=== PATIENT | male | born 1975 | race Asian ===

== ENCOUNTER 2016-12-22 16:00 | Emergency (ER) | payer BC, OTHER ==
[~2016-12-22] VITALS: Ht 165.1 cm; Wt 61.2 kg
[~2016-12-22 16:00] MED LIST: METH4TAB2 PO; VENTOLIN HFA18 GM INH
[2016-12-22 16:20] VITALS: BP 134/90
--- NOTE | 2016-12-22 16:57 | RAD ---
Chest, 2 views, 12/22/2016: History: Cough, shortness of breath The heart size and pulmonary vascularity are normal. No pulmonary infiltrates are seen. There is no evidence of pleural fluid. IMPRESSION: No acute cardiopulmonary abnormality is detected.
[2016-12-22] MEDS ORDERED: ALBUTEROL SULFATE 2.5 MG/3 ML NEBU. NEB ONE (17:00)
--- NOTE | 2016-12-22 17:07 | PHYS DOC ---
Past Medical History Past Medical History: Asthma Past Surgical History: Other Additional Past Surgical Histo: colon surgery Additional Information: Nonsmoker Alcohol Use: None Drug Use: None Adult General Chief Complaint Chief Complaint: COUGH HPI HPI Patient is a 41 year old male who presents with subjective fever and productive cough for 3 days. He reports shortness of breath, nasal congestion, and chills. He has a sore throat with cough and headache when he feels feverish. He denies any ear pain. He has been taking Amoxil for 2 days, [id number] He is out of his AdvNexess Diskus. He did receive a flu shot this season. He denies any known sick contacts. He does not have a PCP. The patient does not speak Malay. His son translates. Review of Systems Review of Systems Constitutional: Reports subjective fever and chills. Eyes: Denies change in visual acuity, redness, or eye pain. [] HENT: Denies ear pain. Reports nasal congestion and sore throat. Respiratory: Reports productive cough and shortness of breath. Cardiovascular: Denies chest pain, palpitations or edema. [] GI: Denies abdominal pain, nausea, vomiting, bloody stools or diarrhea. [] : Denies dysuria, hematuria or urinary frequency. [] Musculoskeletal: Denies back pain or joint pain. [] Integument: Denies rash or skin lesions. [] Neurologic: Denies focal weakness or sensory changes. Reports headache with fever, resolved when fever breaks. Endocrine: Denies polyuria or polydipsia. [] Psych: Denies anxiety or depression. [] All systems reviewed and negative unless otherwise stated in the HPI. Current Medications Current Medications Current Medications Medications (Trade) Dose Ordered Sig/Julee Start Time Stop Time Status Last Admin Dose Admin Albuterol Sulfate (Ventolin Neb Soln) 2.5 mg 1X ONCE 12/22/16 17:00 12/22/16 17:01 NM Allergies Allergies Allergies Coded Allergies Type Severity Reaction Last Updated Verified No Known Drug Allergies 03/24/16 No Physical Exam Physical Exam Constitutional: Well developed, well nourished, no acute distress, non-toxic appearance. [] HENT: Normocephalic, atraumatic, bilateral external ears normal, oropharynx moist, no oral exudates, nose normal. Bilateral TMs without erythema or bulging. There is no posterior pharyngeal erythema or tonsillar edema. Bilateral nasal turbinates are swollen and erythematous. Eyes: PERRLA, EOMI, conjunctiva normal, no discharge. [] Neck: Normal range of motion, no tenderness, supple, no stridor. [] Cardiovascular:Heart rate regular rhythm, no murmur [] Lungs & Thorax: No respiratory distress. Diffuse inspiratory and expiratory wheezes in all lung reid without rales or rhonchi. Skin: Warm, dry, no erythema, no rash. [] Neurologic: Alert and oriented X 3, normal motor function, normal sensory function, no focal deficits noted. [] Psychologic: Affect normal, judgement normal, mood normal. [] Current Patient Data Vital Signs Vital Signs Date Time Temp Pulse Resp B/P Pulse Ox O2 Delivery O2 Flow Rate FiO2 12/22/16 17:04 95 Room Air 12/22/16 16:20 98.1 90 18 98.1 Lab Values Laboratory Tests Test 12/22/16 16:25 Influenza Type A Antigen Negative (NEGATIVE) Influenza Type B Antigen Negative (NEGATIVE) EKG EKG [] Radiology/Procedures Radiology/Procedures REASON: cough, soa, wheezing throughout PROCEDURE: CHEST PA & LATERAL Chest, 2 views, 12/22/2016: History: Cough, shortness of breath The heart size and pulmonary vascularity are normal. No pulmonary infiltrates are seen. There is no evidence of pleural fluid. IMPRESSION: No acute cardiopulmonary abnormality is detected. Course & Med Decision Making Course & Med Decision Making Pertinent Labs and Imaging studies reviewed. (See chart for details) Reexamination after nebulizer treatment reveals improved breathing with decreased wheezes. There are expiratory wheezes in the lung bases remaining. Results were discussed with the patient and family. He is discharged home with prescription for albuterol inhaler, Advair Diskus, prednisone. Return precautions were discussed. Patient and family verbalized understanding and agree with plan. Dragon Disclaimer Dragon Disclaimer This electronic medical record was generated, in whole or in part, using a voice recognition dictation system. Departure Departure Impression: Primary Impression: Bronchitis Disposition: 01 HOME, SELF-CARE Condition: IMPROVED Referrals: NO PCP (PCP) Patient Instructions: Acute Bronchitis, [id number] Additional Instructions: Your flu test was negative. Your chest x-ray does not show pneumonia. You appear to have bronchitis, which is usually viral. Antibiotics do not help to treat viral infections. Please complete all the prescribed prednisone, even if you are feeling better. Please take Tylenol or ibuprofen for fever or pain. These are available over-the -counter without prescription. Use according to package instructions. Please follow-up with a primary care provider within one week. Return to the emergency department if you have any new or concerning symptoms. Scripts Fluticasone/Salmeterol (Advair 250-50 Diskus)1 Each Disk.w.dev1 Inh IH BID #1 INHALER Prov:BREANA RAMIRES 12/22/16 Albuterol Sulfate (Proair Hfa Inhaler)8.5 Gm Hfa.aer.ad1 Puff INH Q4HRS PRN SHORTNESS OF BREATH #1 INHALER Prov:BREANA RAMIRES 12/22/16 Prednisone 20 Mg Ppxgvl05 Mg PO DAILY 5 Days Prov:BREANA RAMIRES 12/22/16 BREANA RAMIRES Dec 22, 2016 17:07
[2016-12-22 17:15] LABS: OBC FLU VALID
[2016-12-22] MEDS ORDERED: PRED20TA PO (18:00)
[2016-12-22] MEDS ORDERED: PROAIR HFA8.5 GM INH (18:00)
[2016-12-22] MEDS ORDERED: FLUT1DIS3 IH (18:00)
== END 2016-12-22 18:09 | disposition home or self-care (01) ==
LOC: ER 16:00
DX: J40 Bronchitis, not specified as acute or chronic (principal); J45.909 Unspecified asthma, uncomplicated
CPT/HCPCS: 71020; 87804; 99285-25

== ENCOUNTER 2017-03-10 14:15 | Emergency (ER) | payer OTHER ==
[~2017-03-10] VITALS: Ht 165.1 cm; Wt 61.2 kg
[~2017-03-10 14:15] MED LIST changes: +FLUT1DIS3 IH; +PRED20TA PO; +PROAIR HFA8.5 GM INH
[2017-03-10 14:37] VITALS: BP 123/81
--- NOTE | 2017-03-10 14:57 | PHYS DOC ---
Past Medical History Past Medical History: No Pertinent History, Asthma Past Surgical History: Other Additional Past Surgical Histo: colon surgery Alcohol Use: None Drug Use: None Adult General Chief Complaint Chief Complaint: COUGH HPI HPI Patient is a 41 year old male presents emergency department stating that he's had a cough congestion and fever for the last 3 days. He is also been having some shortness of air and difficulty breathing when laying flat at night. He deny any history of congestive heart failure, they deny any lower extremity swelling. Patient denies any history of cigarette smoking. Patient is non- Tristanian speaking and has emergency medicine at bedside. They are unaware of how high the fever was as they have not taken the temperature. They do state the cough is been productive with yellow color. Review of Systems Review of Systems Constitutional: Denies fever or chills [] Eyes: Denies change in visual acuity, redness, or eye pain [] HENT: Denies nasal congestion or sore throat [] Respiratory: cough and shortness of breath Cardiovascular: No additional information not addressed in HPI [] GI: Denies abdominal pain, nausea, vomiting, bloody stools or diarrhea [] : Denies dysuria or hematuria [] Musculoskeletal: Denies back pain or joint pain [] Integument: Denies rash or skin lesions [] Neurologic: Denies headache, focal weakness or sensory changes [] Endocrine: Denies polyuria or polydipsia [] Current Medications Current Medications Current Medications Medications (Trade) Dose Ordered Sig/Julee Start Time Stop Time Status Last Admin Dose Admin Albuterol/ Ipratropium (Duoneb) 3 ml 1X ONCE 03/10/17 15:00 03/10/17 15:01 DC 03/10/17 15:00 3 ML Prednisone (Prednisone) 40 mg 1X ONCE 03/10/17 15:00 03/10/17 15:01 DC 03/10/17 15:23 40 MG Allergies Allergies Allergies Coded Allergies Type Severity Reaction Last Updated Verified No Known Drug Allergies 03/24/16 No Physical Exam Physical Exam Constitutional: Well developed, well nourished, no acute distress, non-toxic appearance. [] HENT: Normocephalic, atraumatic, bilateral external ears normal, oropharynx moist, no oral exudates, nose normal. [] Eyes: PERRLA, EOMI, conjunctiva normal, no discharge. [] Neck: Normal range of motion, no tenderness, supple, no stridor. [] Cardiovascular:Heart rate regular rhythm, no murmur [] Lungs & Thorax: Bilateral breath sounds with wheezes noted throughout Skin: Warm, dry, no erythema, no rash. [] Back: No tenderness Extremities: No tenderness, no cyanosis, no clubbing, ROM intact, no edema. [] Neurologic: Alert and oriented X 3, normal motor function, normal sensory function, no focal deficits noted. [] Psychologic: Affect normal, judgement normal, mood normal. [] Current Patient Data Vital Signs Vital Signs Date Time Temp Pulse Resp B/P (MAP) Pulse Ox O2 Delivery O2 Flow Rate FiO2 03/10/17 14:55 Room Air 03/10/17 14:37 97.9 65 18 100 97.9 EKG EKG [] Radiology/Procedures Radiology/Procedures [] Course & Med Decision Making Course & Med Decision Making Pertinent Labs and Imaging studies reviewed. (See chart for details) CXR negative per Dr Wayne. Patient was provided with respiratory treatment here in the emergency department. He was provided with prednisone here as well. Breath sounds at the current time appear to be clear. Patient will be discharged home with Zithromax, prednisone, and pro-air. Patient will also be instructed to use Tylenol or ibuprofen for fever chills or generalized body aches and discomfort. Recommended following up with his primary care physician in the next week. Signs symptoms to return back to emergency department as been provided. Patient agrees with discharge instructions treatment regimens and follow-up recommendations. [] Dragon Disclaimer Dragon Disclaimer This electronic medical record was generated, in whole or in part, using a voice recognition dictation system. Departure Departure Impression: Primary Impression: Bronchitis Disposition: 01 HOME, SELF-CARE Condition: STABLE Referrals: NO PCP (PCP) Patient Instructions: Acute Bronchitis, [id number] Additional Instructions: You have been provided with respiratory treatment here in the emergency department. Chest x-ray was negative for any abnormalities. Activity as tolerated. Medications as prescribed. Tylenol or ibuprofen for fever chills or generalized body aches and discomfort. Follow-up with primary care physician in the next 5-7 days. Return back to emergency prior signs symptoms of become worse. Scripts Albuterol Sulfate (PROAIR HFA INHALER) 8.5 Gm Hfa.aer.ad 1 PUFF INH PRN Q6HRS Y for SHORTNESS OF BREATH, #1 INHALER 0 Refills Prov: ASHA OGDEN APRN 03/10/17 Azithromycin (ZITHROMAX) 250 Mg Tablet 250 MG PO DAILY for ANTI-BIOTIC, #6 TAB 0 Refills Take 2 tablets today then 1 tablet daily until gone. Prov: ASHA OGDEN APRN 03/10/17 Prednisone (PREDNISONE) 20 Mg Tablet 40 MG PO DAILY, #14 TAB Prov: ASHA OGDEN APRN 03/10/17 ASHA OGDEN APRN March 10, 2017 14:57
[2017-03-10] MEDS ORDERED: IPRATRPIUM/ALBUTEROL 0.5/2.5MG 3 ML NEBU. NEB ONE (15:00)
[2017-03-10] MEDS ORDERED: predniSONE 20 MG TABLET PO ONE (15:00)
[2017-03-10] MEDS ORDERED: AZIT250T PO (15:42)
[2017-03-10] MEDS ORDERED: PRED20TA PO (15:42)
[2017-03-10] MEDS ORDERED: PROAIR HFA8.5 GM INH (15:42)
--- NOTE | 2017-03-11 08:43 | RAD ---
Indication: Productive cough, fever, short of air at night Technique: Two-view chest radiograph was obtained. No comparison is available. Findings: The lungs are clear. The cardiopulmonary silhouette is within normal limits. There is no pleural effusion. The bony structures are intact. Impression: No acute thoracic findings.
== END 2017-03-10 15:50 | disposition home or self-care (01) ==
LOC: ER 15:21
DX: J20.9 Acute bronchitis, unspecified (principal); J45.909 Unspecified asthma, uncomplicated
CPT/HCPCS: 71020; 94250; 94640; 99284; J7512; J7620

== ENCOUNTER 2019-02-13 20:39 | Emergency (ER) | payer BC, OTHER ==
[~2019-02-13] VITALS: Ht 162.6 cm; Wt 61.2 kg
[~2019-02-13 20:39] MED LIST changes: +ALBU2.5V8 INH; +AZIT250T PO; -PROAIR HFA8.5 GM INH
[2019-02-13 21:08] VITALS: BP 159/97
--- NOTE | 2019-02-13 21:16 | PHYS DOC ---
Past Medical History Past Medical History: No Pertinent History, Asthma (CASTILLO LEWIS) Past Surgical History: Other Additional Past Surgical Histo: colon surgery (CASTILLO LEWIS) Alcohol Use: None Drug Use: None (CASTILLO LEWIS) Adult General Chief Complaint Chief Complaint: COUGH HPI HPI Patient is a 43 year old M who speaks [place] who is here with reports of cough and feeling SOB. His son is translating. They were offered the spring intern phone but declined. Pt states symptoms started about a week ago and he feels scratchiness in his throat as well. (CASTILLO LEWIS) Review of Systems Review of Systems Constitutional: Denies fever or chills [] Eyes: Denies change in visual acuity, redness, or eye pain [] HENT: Denies nasal congestion. Reports scratchy throat. Respiratory: Reports cough and shortness of breath. Cardiovascular: Denies chest pain GI: Denies abdominal pain, nausea, vomiting, bloody stools or diarrhea [] : Denies dysuria or hematuria [] Musculoskeletal: Denies back pain or joint pain [] Integument: Denies rash or skin lesions [] Neurologic: Denies headache, focal weakness or sensory changes [] All other systems were reviewed and found to be within normal limits, except as documented in this note. (CASTILLO LEWIS) Allergies Allergies Allergies Coded Allergies Type Severity Reaction Last Updated Verified No Known Drug Allergies 03/24/16 No (ANNA JAIMES DO) Physical Exam Physical Exam Constitutional: Well developed, well nourished, no acute distress, non-toxic appearance. [] HENT: Normocephalic, atraumatic, bilateral external ears normal, no oral exudates, nose normal. Mild erythema of oropharynx. Eyes: PERRLA, EOMI, conjunctiva normal, no discharge. [] Neck: Normal range of motion, no tenderness, supple, no stridor. [] Cardiovascular:Heart rate regular rhythm, no murmur [] Lungs & Thorax: Bilateral breath sounds clear. Cough noted. Abdomen: Bowel sounds normal, soft, no tenderness, no masses, no pulsatile mas ses. [] Skin: Warm, dry, no erythema, no rash. [] Back: No tenderness, no CVA tenderness. [] Extremities: No tenderness, no cyanosis, no clubbing, ROM intact, no edema. [] Neurologic: Alert and oriented X 3, normal motor function, normal sensory function, no focal deficits noted. [] Psychologic: Affect normal, judgement normal, mood normal. [] (CASTILLO LEWIS) Current Patient Data Vital Signs Vital Signs Date Time Temp Pulse Resp B/P (MAP) Pulse Ox O2 Delivery O2 Flow Rate FiO2 02/13/19 21:08 98.1 62 18 159/97 (117) 98 Room Air 98.1 (ANNA JAIMES DO) EKG EKG NSR, no STEMI reviewed by Dr. Jaimes (CASTILLO LEWIS) Radiology/Procedures Radiology/Procedures CXR: neg for acute cardiopulmonary finding. (CASTILLO LEWIS) Course & Med Decision Making Course & Med Decision Making Pertinent Labs and Imaging studies reviewed. (See chart for details) Pt with cough and scratchy throat. CXR is neg for pneumonia. Will treat for bronchitis and allergies. Pt encouraged to f/u with PCP and return if symptoms worsen at anytime. Pt reported SOB, he has normal CXR and no pedal edema. EKG normal. PERC: age over 50: no HR over 100: no room air 02 <95%: no unilateral leg edema: no hemoptysis: no recent surgery or trauma: no prior PE or DVT: no hormone use: no 0 criteria, <2% chance of PE, no need for further workup per PERC guidelines. (CASTILLO LEWIS) Dragon Disclaimer Dragon Disclaimer This electronic medical record was generated, in whole or in part, using a voice recognition dictation system. (CASTILLO LEWIS) Departure Departure Impression: Primary Impression: Bronchitis Disposition: 01 HOME, SELF-CARE Condition: STABLE Referrals: UNKNOWN PCP NAME (PCP) Patient Instructions: Acute Bronchitis, [id number], Allergies, Generic Scripts Loratadine/Pseudoephedrine (CLARITIN-D 12 HOUR TABLET) 1 Each Tab.er.12h 1 TAB PO BID, #14 TAB Prov: CASTILLO LEWIS 02/13/19 Prednisone (PREDNISONE) 20 Mg Tablet 1 TAB PO BID, #10 TAB Prov: CASTILLO LEWIS 02/13/19 Attending Signature Attending Signature I have reviewed the PA/RIVER DRIVER's note and plan of care. I was available for consultation as needed during the patient's visit in the emergency department. I agree with the clinical impression, plan, and disposition. (ANNA JAIMES DO) CASTILLO LEWIS Feb 13, 2019 21:16 ANNA JAIMES DO Feb 16, 2019 15:35
[2019-02-13] MEDS ORDERED: PRED20TA PO (22:01)
[2019-02-13] MEDS ORDERED: LORA1TAB47 PO (22:01)
--- NOTE | 2019-02-13 23:01 | RAD ---
Two-view chest dated 02/13/2019. Comparison made to 03/10/2017. CLINICAL INDICATION: Chest pain for one week. FINDINGS: Heart and mediastinal contours are within normal limits. Lungs are clear without focal consolidation. Vascular interstitium within normal limits. No pleural effusion or pneumothorax. IMPRESSION: No acute radiographic abnormality. Electronically signed by: Zion Chavarria MD (02/13/2019 10:58 PM) [id number]
--- NOTE | 2019-02-14 07:31 | EKG ---
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
== END 2019-02-13 22:16 | disposition home or self-care (01) ==
LOC: ER 20:39
DX: J45.909 Unspecified asthma, uncomplicated (principal); R07.89 Other chest pain
CPT/HCPCS: 71046; 93005; 99284-25